=== PATIENT | male | born 1970 | race American Indian/Alaskan Native ===

== ENCOUNTER 2018-10-19 02:20 | Emergency (ER) | payer SELFPAY ==
[2018-10-19] MEDS ORDERED: QUELICIN ONE (02:50)
--- NOTE | 2018-10-19 03:36 | Emergency Department Report ---
ED CPR HPI - General Stated Complaint: CARDIAC ARREST Time Seen by Provider: 10/19/18 03:13 Source: EMS Mode of arrival: Stretcher Limitations: Altered Mental Status - History of Present Illness Initial Comments: 48-year-old male with no known past medical history presents to the ER with cardiac arrest. Initially received call from EMS in route the patient had shortness of breath and with combative. Patient developed respiratory arrest as soon as they arrived at the hospital ramp. Patient presents with copious frothy sputum from mouth and PEA rhythm. Apparently patient has been having shortness of breath for several hours and initially declined, to the hospital. He apparently does not have any past medical history as per his but does not go to a physician on a regular basis. ED Review of Systems ROS: Stated complaint: CARDIAC ARREST Other details as noted in HPI Comment: Unobtainable due to pts medical conditions ED Physical Exam - Other Other exam information: General: Unresponsive Head exam: Atraumatic, normocephalic Eyes exam: Normal appearance, pupils equal reactive to light ENT: Moist mucous membrane, copious frothy sputum coming from the airway Neck exam: Normal inspection Respiratory exam: Apneic Cardiovascular: PEA, no palpable pulse audible rhythm Abdomen: Soft, nondistended, and nontender, with normal bowel sounds, no rebound, or guarding Extremity: No spontaneous movement Back: Normal Inspection Neurologic: GCS equals 3 Psychiatric: Unresponsive ED Course - Reevaluation(s) Reevaluation #1: 10/19/18 ACLS activated soon as patient arrival. Presented without airway or an IV. IV was obtained with epinephrine was initiated with chest compressions. The patient received bagging. Patient had copious secretions coming for airway then subsequently developed a copious amount of vomiting requiring suctioning. Aspiration is likely. Several attempts at intubation were unsuccessful due to anterior airway and copious amount of secretions. Requested help from anesthesia who came down and was able to intubate the patient. Despite multiple doses of epinephrine patient remained in PEA and deteriorated to asystole. Patient's Accu-Chek during resuscitation as well as over 300. Pt arrived at 2:02 in resuscitation efforts were discontinued at 3:09. His the ER and was informed of his . - Intubation Additional Comments: There were 2 unsuccessful intubation attempt using a Mac 4 and 7.5 ET tube as well as a [address] Shaw came to the ER and intubated patient using a 3.0 Mac blade, bougie, and 7.5 ET tube. ED Medical Decision Making - Medical Decision Making Patient deteriorated rapidly in route and arrested soon as he arrives in the ED. Patient was a difficult intubation and had copious amount of frothy sputum followed by a copious amount of vomiting which ex of food. Patient likely aspirated. Resuscitation efforts were continued after securing airway. Patient remained in PEA and deteriorated to asystole. - Differential Diagnosis MO, chf, arrhythmia, hypoxia Critical Care Time: Yes Critical care time in (mins) excluding proc time.: 35 Critical care attestation.: If time is entered above; I have spent that time in minutes in the direct care of this critically ill patient, excluding procedure time. ED Disposition Clinical Impression: Cardiopulmonary arrest Disposition: DC-20 Is pt being admited?: No Condition: Stable Time of Disposition: 03:10
[2018-10-19] MEDS ORDERED: ADRENALIN ONE (10:18)
== END 2018-10-19 06:44 ==
LOC: ED 02:20
DX: I46.9 Cardiac arrest, cause unspecified (principal)
CPT/HCPCS: 82962; 99291; J0171; J0330